=== PATIENT | male | born 1940 | race Caucasian/White ===

== ENCOUNTER → 2016-12-28 | Outpatient (CLI) | payer OTHER | LOC: CIMAGING 06:55 | PROVIDERS: ATTEND Internal Medicine Cardiovascular Disease | DX: I70.0 Atherosclerosis of aorta (principal) ==

== ENCOUNTER 2017-01-08 09:53 | Observation (INO) | payer OTHER ==
[2017-01-08] MEDS ORDERED: NS 1,000 ML IV ONE ×2 (10:08→14:07)
--- NOTE | 2017-01-08 10:09 | CPEKG ---
Heart Rate: 84 RR Interval: 714 P-R Interval: 192 QRSD Interval: 108 QT Interval: 380 QTC Interval: 450 P [place]: 67 QRS [place]: -44 T Wave [place]: 51 EKG Severity - ABNORMAL ECG - EKG Impression: SINUS RHYTHM EKG Impression: INCOMPLETE RBBB AND LAFB Electronically Signed By: Wilmer Medina 08-Jan-2017 10:16:59
--- NOTE | 2017-01-08 10:15 | EDPHY ---
H & P Stated Complaint: states 0730 this am c/o SOB then unable to recall events Time Seen by Provider: 01/08/17 09:59 HPI/ROS: CHIEF COMPLAINT: Confusion HISTORY OF PRESENT ILLNESS: The patient is a 76-year-old man with no significant past medical history other than prostatic hypertrophy who comes to the emergency department with his because of acute memory loss. She states that when he got up from bed he was hunched over and she asked what was wrong. He said that he was short of breath but did not appear to be breathing without any difficulty. He then was extremely confused about where he was, what day it was, who the president was etc. He is usually very sharp and alert. He went to bed feeling normally. The states that something similar happened last year and resolved spontaneously after about an hour the cause was never found. Patient does not have any history of stroke or cancer. No history of seizures or migraines. He denies being in any pain. He can answer most questions appropriately and can ambulate and move all of his extremities but has difficulty with questions about the date, his location, the president is cetera. He does recognize his and can recite his medical history. No recent fevers. No recent trauma. REVIEW OF SYSTEMS: Constitutional: denies: chills, fever, recent illness, recent injury EENTM: denies: blurred vision, double vision, nose congestion Respiratory: denies: cough, shortness of breath Cardiac: denies: chest pain, irregular heart rate, lightheadedness, palpitations Gastrointestinal/Abdominal: denies: abdominal pain, diarrhea, nausea, vomiting, blood streaked stools Genitourinary: denies: dysuria, frequency, hematuria, pain Musculoskeletal: denies: joint pain, muscle pain Skin: denies: lesions, rash, jaundice, bruising Neurological: See HPI, denies: headache, numbness, paresthesia, tingling, dizziness, weakness Hematologic/Lymphatic: denies: blood clots, easy bleeding, easy bruising Immunologic/allergic: denies: HIV/AIDS, transplant - Physical Exam General Appearance: WD/WN, mild distress Eyes, Ears, Nose, Throat Exam: PERRL/EOMI, normal ENT inspection, pharynx normal Neck: non-tender, full range of motion, supple, normal inspection. No: stiff neck, tender lateral Cardiovascular/Chest: normal peripheral pulses, regular rate, rhythm Respiratory: chest non-tender, lungs clear, normal breath sounds. No: crackles , rhonchi Gastrointestinal/Abdominal: normal bowel sounds, non tender, soft Back Exam: normal inspection Extremity: normal range of motion, non-tender, normal inspection Mental Status: Confused to place, date, day of the week, who the present it is. Aware of self and . Kidney a.m. objects without difficulty. NIH stroke score is 1 only for not knowing his exact age but he does know his birthday. CN's Exam: normal hearing, normal speech, PERRL, normal eye position, normal gag reflex, normal pupil position, normal speech. No: facial asymmetry, facial droop, facial paresthesias, gaze palsy, tongue deviation to R, tongue deviation to L Coordination/Gait: normal finger to nose, normal gait Motor/Sensory: normal. No: motor deficit, sensory deficit, pronator drift (R), pronator drift (L), weak motor strength RUE, weak motor strength LUE, weak motor strength RLE, weak motor strength LLE DTR: tricep (R): 2+, tricep (L): 2+, knee (R): 2+, knee (L): 2+ Skin Exam: warm/dry, normal color Lymphatic: no adenopathy Source: Patient, Family Exam Limitations: No limitations - Medical/Surgical History Hx Asthma: No Hx Chronic Respiratory Disease: No Hx Diabetes: No Hx Cardiac Disease: No Hx Renal Disease: No Hx Cirrhosis: No Hx Alcoholism: No Hx HIV/AIDS: No Other PMH: BPH - Family History Significant Family History: No pertinent family hx - Social History Smoking Status: Former smoker Alcohol Use: Sober Drug Use: None Constitutional: Initial Vital Signs Temperature (C) 36.3 C 01/08/17 10:06 Heart Rate 85 01/08/17 10:06 Respiratory Rate 16 01/08/17 10:06 Blood Pressure 130/68 H 01/08/17 10:06 O2 Sat (%) 100 01/08/17 10:06 O2 Delivery Mode Room Air Allergies/Adverse Reactions: Penicillins Allergy (Verified 01/08/17 10:10) UNK DETERGENT SOAP Allergy (Mild, Uncoded 01/08/17 10:10) RASH/IRRIATED SKIN Home Medications: Medication Instructions Recorded Avodart 08/13/09 Aspirin EC 81 mg (*) 01/08/17 Atorvastatin Calcium 01/08/17 Iron 01/08/17 Medical Decision Making - Diagnostics EKG Interpretation: An EKG obtained and was read and documented in trace view. Please see trace view for full reading and report. Sinus rhythm, right bundle branch block, no acute ischemic changes Imaging Results: Imaging Impressions Chest X-Ray 01/08/17 10:09 Impression: Negative. Head CT 01/08/17 10:09 Impression: 1. Mild atrophy. 2. No acute hemorrhage, hydrocephalus, or mass effect. 3. Cerebrovascular atherosclerosis. 4. No definite acute infarct. 5. Consider MRI of the brain without and with contrast enhancement, if there is continued clinical concern. Findings and recommendations discussed with Emergency Department physician, CHEVY RUBI at 11:34 hour, 01/08/2017. Final report concurs with initial preliminary interpretation. ED Course/Re-evaluation: 11:00 a.m. I spoke with Dr. Dave from Neurology. He states this does not sound like a stroke and agrees not calling a stroke alert. We will continue or workup. 12:15 p.m. I spoke with hospital service who accepted for Dr. Valdez. We will transfer an ambulance. Patient's symptoms remain the same. Is not sure why he is here. Does remember where he was but not when. Does remember where he went to college. Differential Diagnosis: Partial list of the Differential diagnosis considered include but were not limited to; CVA, global amnesia and although unlikely based on the history and physical exam, I also considered electrolyte abnormality, infection, ischemia. - Data Points Laboratory Results: Laboratory Results 01/08/17 10:20 01/08/17 10:20 01/08/17 01/08/17 01/08/17 10:20 10:20 10:20 WBC 4.92 10^3/uL 10^3/uL (3.80-9.50) RBC 4.59 10^6/uL 10^6/uL (4.40-6.38) Hgb 14.3 g/dL g/dL (13.7-17.5) Hct 40.8 % % (40.0-51.0) MCV 88.9 fL fL (81.5-99.8) MCH 31.2 pg pg (27.9-34.1) MCHC 35.0 g/dL g/dL (32.4-36.7) RDW 14.0 % % (11.5-15.2) Plt Count 228 10^3/uL 10^3/uL (150-400) MPV 10.1 fL fL (8.7-11.7) Neut % (Auto) 67.4 % % (39.3-74.2) Lymph % (Auto) 19.3 % % (15.0-45.0) [place] % (Auto) 8.9 % % (4.5-13.0) Eos % (Auto) 3.0 % % (0.6-7.6) Baso % (Auto) 1.0 % % (0.3-1.7) Nucleat RBC Rel Count 0.0 % % (0.0-0.2) Absolute Neuts (auto) 3.31 10^3/uL 10^3/uL (1.70-6.50) Absolute Lymphs (auto) 0.95 10^3/uL L 10^3/uL (1.00-3.00) Absolute Monos (auto) 0.44 10^3/uL 10^3/uL (0.30-0.80) Absolute Eos (auto) 0.15 10^3/uL 10^3/uL (0.03-0.40) Absolute Basos (auto) 0.05 10^3/uL 10^3/uL (0.02-0.10) Absolute Nucleated RBC 0.00 10^3/uL 10^3/uL (0-0.01) Immature Gran % 0.4 % % (0.0-1.1) Immature Gran # 0.02 10^3/uL 10^3/uL (0.00-0.10) PT 14.8 SEC SEC (12.0-15.0) INR 1.19 H (0.83-1.16) APTT 31.5 SEC SEC (23.0-38.0) Sodium 143 mEq/L mEq/L (134-144) Potassium 3.8 mEq/L mEq/L (3.5-5.2) Chloride 106 mEq/L mEq/L (97-110) Carbon Dioxide 24 mEq/l mEq/l (22-31) Anion Gap 13 mEq/L mEq/L (8-16) BUN 11 mg/dL mg/dL (7-23) Creatinine 0.8 mg/dL mg/dL (0.7-1.3) Estimated GFR > 60 Glucose 106 mg/dL H mg/dL (70-100) Calcium 9.1 mg/dL mg/dL (8.5-10.4) Troponin I < 0.012 ng/mL ng/mL (0.000-0.034) Medications Given: Discontinued Medications Sodium Chloride (Ns) 1,000 mls @ 500 mls/hr IV EDNOW ONE PRN Reason: Protocol Stop: 01/08/17 12:07 Last Admin: 01/08/17 10:22 Dose: 1,000 mls Departure - Departure Disposition: [facility] Inpatient Acute Clinical Impression: Amnesia memory loss Condition: Fair
[2017-01-08 10:26] LABS: % IMMATURE GRANULYOCYTES 0.4 % (0.0-1.1); ABSOLUTE IMMATURE GRANULOCYTES 0.02 10^3/uL (0.00-0.10); ADD DIFF? NO; ADD MORPH? NO; ADD SCAN? NO; ATYPICAL LYMPHOCYTE FLAG 10 (0-99); FRAGMENT RBC FLAG 0 (0-99); HEMATOCRIT 40.8 % (40.0-51.0); HEMOGLOBIN 14.3 g/dL (13.7-17.5); LEFT SHIFT FLG 0 (0-99); LIPEMIA HEMOLYSIS FLAG 90 (0-99); MEAN CELL HEMOGLOBIN 31.2 pg (27.9-34.1); MEAN CELL VOLUME 88.9 fL (81.5-99.8); MEAN PLATELET VOLUME 10.1 fL (8.7-11.7); PLATELET CLUMPS FLAG 0 (0-99); PLATELET COUNT 228 10^3/uL (150-400); RED BLOOD CELL COUNT 4.59 10^6/uL (4.40-6.38)
[2017-01-08 10:41] LABS: INR 1.19 (0.83-1.16); PROTIME(PATIENT) 14.8 SEC (12.0-15.0)
[2017-01-08 10:42] LABS: APTT 31.5 SEC (23.0-38.0)
[2017-01-08 11:20] LABS: ANION GAP 13 mEq/L (8-16); CALCIUM 9.1 mg/dL (8.5-10.4); CARBON DIOXIDE 24 mEq/l (22-31); CHLORIDE 106 mEq/L (97-110); CREATININE 0.8 mg/dL (0.7-1.3); GLOMERULAR FILTRATION RATE > 60; GLUCOSE 106 mg/dL (70-100); POTASSIUM 3.8 mEq/L (3.5-5.2); SODIUM 143 mEq/L (134-144)
[2017-01-08 11:29] LABS: TROPONIN I < 0.012 ng/mL (0.000-0.034)
[2017-01-08] MEDS ORDERED: ACETAMINOPHEN 325 MG TAB PO PRN (14:07)
--- NOTE | 2017-01-08 15:02 | GHP ---
[f rep st] HISTORY AND PHYSICAL DATE OF ADMISSION: 01/08/2017 CHIEF COMPLAINT: Confused. HISTORY OF PRESENT ILLNESS: 76-year-old man, relatively healthy, presents with an episode of confusion. His found him this morning sitting on side of the bed, stating that he was short of breath. He was unable to really remember much including things like the president. He does know his name. He does know his address and is close on his phone number. He does not remember really how he got to the hospital or what they did today. He does seem to somewhat remember driving. I am unclear when his last memories were. He does not remember what he did for his birthday a year ago, either. Per his , he is normally quite sharp. PAST MEDICAL/SURGICAL HISTORY: 1. Hyperlipidemia. 2. BPH. MEDICATIONS: Please see medication reconciliation. ALLERGIES: penicillins, detergent soap. SOCIAL HISTORY: Lives with his . He is a recovering alcoholic. FAMILY HISTORY: Reviewed and noncontributory. REVIEW OF SYSTEMS: 10-point review of systems is conducted and is negative except per HPI. PHYSICAL EXAM: VITAL SIGNS: Blood pressure initially 130/68, heart rate 85, respiration rate 16, saturating 100% on room air. Temperature 36.3. GENERAL: The patient is a pleasant man who appears comfortable, in no acute distress. HEENT: Normocephalic, atraumatic. CARDIOVASCULAR: Regular rate and rhythm. No murmurs, rubs, or gallops. PULMONARY: Lungs clear to auscultation bilaterally. ABDOMEN: Soft, nontender, nondistended. SKIN: No rash. : Shows no Goldberg. NEUROLOGIC: Alert and oriented by about 1, to person. Cranial nerves 2-12 are intact. Pronator drift is absent. He is able to repeat no ifs, ands, or buts. He does not do very well on serial sevens. Motor is intact in the upper and lower extremities bilaterally. Sensation to light touch is also intact in the upper and lower extremities. LABS: Basic metabolic panel is normal. Troponins negative. INR is 1.1. CBC is normal. DATA: 1. Head CT shows mild atrophy, nothing acute. He does have atherosclerosis. 2. Chest x-ray, which I personally viewed and interpreted, shows normal size heart. Normal lung xiao. Negative. 3. EKG, which I personally viewed and interpreted, shows incomplete right bundle branch block, sinus rhythm. I do not see anything acute. IMPRESSION/PLAN: This is a 76-year-old man, presents with confusion. 1. Confusion/amnesia: Not sure if this exactly represents transient global amnesia. He is attentive. Chief considerations include underlying dementia with some mild delirium versus transient global amnesia versus other dissociative type amnesia. I placed a call to Dr. Dave with Neurology, will review with him to see if any additional imaging is indicated, but I will hold off on ordering at this point. He does have risk factors for atherosclerosis and as he does have atherosclerosis seen on his CT, would consider cerebrovascular accident workup. Would also consider epilepsy with postictal phase. This is a high-risk diagnosis. 2. BPH: Avodart. 3. Hyperlipidemia: Lipitor. 4. We will make him empirically full code. /[id number]/MODL MTDD
[2017-01-08] MEDS: THIAMINE HCL 100 MG in NS 100 ML IV SCH (15:52)
[2017-01-08] MEDS: LISINOPRIL 10 MG TAB PO SCH (18:33)
[2017-01-08 20:25] LABS: COLOR PALE YELLOW; LEUKOCYTE ESTERASE,URINE NEGATIVE (NEGATIVE); NITRITE,URINE NEGATIVE (NEGATIVE)
[2017-01-08] MEDS ORDERED: FLU VACC QS 2017-18 (3YR+)/PF 0.5 ML SYR (FLUARIX QUAD) IM ONE (20:57)
[2017-01-08] MEDS ORDERED: PNEUMOC 13-VAL CONJ-DIP CRM/PF 0.5 ML SYR IM ONE (20:58)
--- NOTE | 2017-01-08 22:19 | GCON ---
[f rep st] CONSULTATION REFERRING PHYSICIAN: Mack Valdez MD HISTORY: The patient is a 76-year-old gentleman who I am asked to see in neurologic consultation reg angela some changes in his mental state today. History is obtained from reviewing my medical records that date back to 2011 through the 2014 office visits, as well as direct history from the patient, kulwant michelle of the medical records, and discussion with the patient's son and daughter and his . The p eliot really does not know why he is here. His says this morning he was awake and had trouble affectively explaining what was happening and he got confused. He initially said he was short of deandra ath and that resolved. He could not remember the president. He could not remember any detailed even ts over the last several hours and when they told him information he kept repeating himself. He came to the emergency room where he was evaluated and had a head CT showing nonspecific changes. He has subsequently started to have a little bit better memory but still says he does not remember why he is here. 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 He went through a series of treatments that included Keppra which initially was somewhat helpful for decreasing the episodes but lead to ad verse side affects, and we switched to Dilantin in 2011, but that cause dizziness and then switched h im to lamotrigine which he took for about the next year and a half but eventually did not like the si de effects and decided to stop that, and does not recall having any more of these episodes of hearing music. He still has some other peculiar episodes that are hard to put into words but surges in his abdomen or other abnormal feelings for which he said he would rather live with them than take medicat ion. FAMILY HISTORY: Unremarkable. He lives with his . He has a history of alcoholism and is recove ring from that. Smoking in the past. PHYSICAL EXAMINATION: VITAL SIGNS: Blood pressure is 170/87, pulse of 67, respirations 18, temperat ure 36.7. GENERAL: He is well developed in no acute distress. NEUROLOGIC: He is alert and attenti ve, and he is oriented slowly to be able to tell me he is in the hospital in [place], [place], and dane suggs can tell me his address. He can tell me his 's name, his children's names. He does not really remember what happened this morning. He can state the name of the president now which he could not do earlier, and they confirm that he keeps repeating himself sometimes, although he was doing a littl e bit less currently. Otherwise nonfocal neurologic examination. IMPRESSION: The patient has a history of awakening with some shortness of breath of unclear cause an d then this state of relative amnesia. Overall, this fits best with transient global amnesia with di fferential considerations of seizure with postictal confusion and less likely posterior circulation t ransient ischemic attack. Delirium does not really fit very well given his generally calm state and level of alertness, and there is no obvious cause for this. This phenomenon is thought to be probabl y be related to a basilar migraine type phenomena and he has had other various symptoms as far back a s 7 years ago for which we never were sure of the cause and treated empirically for possible complex partial seizure phenomena versus migraine with brainstem aura. In any case, he is getting a little b it better which is usually the natural history, and he will probably have resolution by tomorrow, if not we should certainly consider further evaluation and we discussed all this in great detail today. The total unit time in reviewing his case was 50 minutes, with greater than 50% of the time counselin g and coordination of care. /[id number]/MODL
[2017-01-09] MEDS: THIAMINE HCL 100 MG in NS 100 ML IV SCH (07:37)
[2017-01-09] MEDS: LISINOPRIL 10 MG TAB PO SCH (07:41)
[2017-01-09] MEDS ORDERED: FERROUS SULFATE 325 MG TAB PO SCH (09:00)
[2017-01-09] MEDS ORDERED: ASPIRIN 81 MG CHEWABLE TAB PO SCH (09:00)
[2017-01-09 11:29] VITALS: BP 129/74; PULSE 66; RESP 20; TEMP 98.5; O2SAT 95
--- NOTE | 2017-01-09 14:12 | GDS ---
[f rep st] DISCHARGE SUMMARY ALL DIAGNOSES: 1. Transient global amnesia. 2. Hypertension. 3. History of hyperlipidemia. 4. Benign prostatic hypertrophy. HOSPITAL COURSE: This 76-year-old man presented with an episode of amnesia. [place] to be most consist ent with transient global amnesia. It has resolved on the day after admission. He was also somewhat hypertensive here. I have started him on low-dose lisinopril 10 mg p.o. daily. He should follow up with Dr. Brant Dave, his PCP, for ongoing management of his blood pressures. I have also recomm ended that he get a home cuff to follow this. FOLLOWUP: 1. Dr. Aubrey Dave, given the episode of transient global amnesia. 2. Dr. Brant Dave for management of his blood pressure, just started on lisinopril 10 mg. DISPOSITION: Discharged in stable condition to home with his . /[id number]/MODL
--- NOTE | 2017-01-10 16:55 | ASDISCHSUM ---
Discharge Information Plan Status: Medically Cleared to Leave: Discharge Date:01/09/2017 04:01 PM CM D/C Disposition: ADT D/C Disposition:Home, Routine, Self-Care Projected Discharge Date:01/09/2017 04:01 PM Transportation at D/C: Discharge Delay Reason: Follow-Up Date:01/09/2017 04:01 PM Discharge Slot: Final Diagnosis: Placement Information Patient Contact Information Contact Name:DEEPAK Relationship: Address:[address] Work Phone: City:[place] Alternate Phone: State/Zip Code:[place] [address] Email: Financial Information Financial Class: Primary Plan Desc:MEDICARE OUTPATIENT Primary Plan Number:[id number] Secondary Plan Desc:SHYOLAYINKA MARIA FERNANDA PPO Secondary Plan Number:[id number] Assessment Information Intervention Information Intervention Type:*TORREZ-Signed Date of Service:01/09/2017 09:42 AM Patient Type:Observation Staff Member:Samara Baker Hours: Discipline: Severity: Comment:
== END 2017-01-09 16:01 | disposition home or self-care (01) ==
LOC: CED 09:53 → CEDHOLD 12:19 → F3E 13:28
PROVIDERS: ADMIT Internal Medicine; ATTEND Student in an Organized Health Care Education/Training Program
DX: G45.4 Transient global amnesia (principal); I10 Essential (primary) hypertension; E78.5 Hyperlipidemia, unspecified; N40.0 Benign prostatic hyperplasia without lower urinary tract symptoms; I67.2 Cerebral atherosclerosis; Z87.891 Personal history of nicotine dependence; Z88.0 Allergy status to penicillin; Z23 Encounter for immunization
CPT/HCPCS: 70450; 71020; 90670; 90686; 93005; G0008; G0009; G0378; J3411; 80048-PO; 84484-PO; 85025-PO; 85610-PO; 85730-PO

== ENCOUNTER 2018-01-16 09:36 | Day surgery (SDC) | payer OTHER ==
[2018-01-16] MEDS ORDERED: LR 1,000 ML IV ONE (09:55)
[2018-01-16] MEDS ORDERED: LIDOCAINE 1% 2 ML INJ ID PRN (09:55)
[2018-01-16] MEDS ORDERED: PROPOFOL 200 MG/20 ML VIAL ONE (10:25)
[2018-01-16] MEDS ORDERED: LIDOCAINE 2% 2 ML INJ ONE ×2 (10:28)
[2018-01-16] MEDS ORDERED: DEXAMETHASONE 4 MG/ML VIAL ONE (10:28)
[2018-01-16] MEDS ORDERED: ONDANSETRON 4 MG/2 ML VIAL ONE (10:28)
--- NOTE | 2018-01-16 10:56 | PDHPUP ---
History & Physical Update H&P update statement: This history and physical update is based on an assessment of the patient which was completed after admission or registration (within 24 hours), but prior to the surgery/procedure. H&P update: H&P reviewed & patient examined, no change in patient's condition since H&P completed
[2018-01-16] MEDS ORDERED: fentaNYL 100 MCG/2 ML INJ ONE (11:07)
[2018-01-16] MEDS ORDERED: LIDOCAINE 2% JELLY 20 ML (UROJECT) ONE (11:27)
[2018-01-16] MEDS ORDERED: IOPAMIDOL (ISOVUE-M 300) 15 ML VIAL ONE (11:28)
--- NOTE | 2018-01-16 11:30 | PDANEPAE ---
ANE History of Present Illness kidney stone ANE Past Medical History - Cardiovascular History Hx Hypertension: Yes Hx Arrhythmias: No Hx Chest Pain: No Hx Coronary Artery / Peripheral Vascular Disease: No Hx CHF / Valvular Disease: No Hx Palpitations: No Cardiovascular History Comment: bilateral carotid artery disease - Pulmonary History Hx COPD: No Hx Asthma/Reactive Airway Disease: No Hx Recent Upper Respiratory Infection: No Hx Oxygen in Use at Home: No Hx Sleep Apnea: No Sleep Apnea Screening Result - Last Documented: Negative Pulmonary History Comment: BARON triggers - Neurologic History Hx Cerebrovascular Accident: No Hx Seizures: No Hx Dementia: Yes Neurologic History Comment: forgetfulness - Endocrine History Hx Diabetes: No - Renal History Hx Renal Disorders: Yes Renal History Comment: kidney stones - Liver History Hx Hepatic Disorders: No - Neurological & Psychiatric Hx Hx Neurological and Psychiatric Disorders: No - Cancer History Hx Cancer: No - Congenital Disorder History Hx Congenital Disorders: No - GI History Hx Gastrointestinal Disorders: No - Other Health History Other Health History: wears glasses for reading. allergic to detergents - causes rashes. upper and lower dentures - Chronic Pain History Chronic Pain: No - Surgical History Prior Surgeries: prostatectomy, 12/2009. appendectomy. shoulder, clavicle repair. sinus surgery ANE Review of Systems Review of Systems: - Exercise capacity Exercise capacity: >=4 METS METS (RN): 3 METS ANE Patient History - Allergies Allergies/Adverse Reactions: Penicillins Allergy (Verified 01/15/18 16:16) from as a child, unsure of rxn DETERGENT SOAP Allergy (Uncoded 01/15/18 16:17) RASH/IRRIATED SKIN - Home Medications Home Medications: Adult One Daily Multivit Tab 01/15/18 [Last Taken 01/15/18] Aspirin 81mg (*) 01/15/18 [Last Taken 01/15/18] Atorvastatin Calcium 01/15/18 [Last Taken 01/15/18] Donepezil HCl 01/15/18 [Last Taken 01/15/18] Levofloxacin 01/15/18 [Last Taken 01/15/18] Lisinopril 01/15/18 [Last Taken 01/15/18] Oxycodone HCl 01/15/18 [Last Taken 01/15/18] Phenazopyridine HCl 01/15/18 [Last Taken 01/15/18] Senna 01/15/18 [Last Taken 01/15/18] Tamsulosin HCl 01/15/18 [Last Taken 01/15/18] - NPO status NPO Since - Liquids (Date): 01/16/18 NPO Since - Liquids (Time): 00:05 NPO Since - Solids (Date): 01/15/18 NPO Since - Solids (Time): 17:00 - Smoking Hx Smoking Status: Former smoker - Family Anes Hx Family Hx Anesthesia Complications: none ANE Labs/Vital Signs - Labs Result Diagrams: 01/16/18 10:36 - Vital Signs Blood Pressure: 186/84 Heart Rate: 80 Respiratory Rate: 13 O2 Sat (%): 98 Height: 180.34 cm Weight: 68.039 kg ANE Physical Exam - Airway Neck exam: FROM Mallampati Score: Class 2 Mouth exam: dentures - Pulmonary Pulmonary: no respiratory distress - Cardiovascular Cardiovascular: regular rate and rhythym - ASA Status ASA Status: II ANE Anesthesia Plan Anesthesia Plan: GA w LMA
[2018-01-16] MEDS ORDERED: ePHEDrine SULFATE 25 MG/5 ML SYR ONE (11:56)
[2018-01-16] MEDS ORDERED: HYDROmorphONE/DILAUDID 2 MG/ML INJ IVP PRN (12:50)
[2018-01-16] MEDS ORDERED: LR 500 ML IV PRN (12:50)
[2018-01-16] MEDS ORDERED: NALOXONE HCL 0.4 MG/ML INJ IVP PRN (12:50)
[2018-01-16] MEDS ORDERED: LABETALOL HCL 5 MG/ML 20 ML MDV IVP PRN (12:50)
[2018-01-16] MEDS ORDERED: MEPERIDINE 25 MG/0.5 ML AMP IVP PRN (12:50)
[2018-01-16] MEDS ORDERED: fentaNYL 100 MCG/2 ML INJ IVP PRN (12:50)
[2018-01-16] MEDS ORDERED: OPIUM/BELLADONNA ALKALO SUPP PR ONE (13:00)
--- NOTE | 2018-01-16 13:28 | POSTOPPROG ---
Post Op Note Date of Operation: 01/16/18 Surgeon: Danyelle Giron Anesthesiologist: Gary Anesthesia: GET(General Endotracheal) Pre-op Diagnosis: left ureteral and renal stone Post-op Diagnosis: bladder stone, left renal stones Indication: nephrolithiasis Procedure: cysto,LURS,laser lithotripsy,stent,basket extraction stone, removal bladder Findings: ureteral stone found in bladder, large renal stone Inf/Abcess present in the surg proc area at time of surgery?: No Complications: none, pt tolerated procedure well Specimen(s): stone
--- NOTE | 2018-01-16 13:36 | PDGENHP ---
History and Physical - Chief Complaint right ureteral stone - History of Present Illness Pt presented to [facility] last weekend for pain, right obs ureteral stone. Stent placed. Here for treatment of her stone. No recent fevers or chills. No complaints. Multiple stone procedures in the past = around 20 stone procedures. History Information - Allergies/Home Medication List Allergies/Adverse Reactions: Penicillins Allergy (Verified 01/15/18 16:16) from as a child, unsure of rxn DETERGENT SOAP Allergy (Uncoded 01/15/18 16:17) RASH/IRRIATED SKIN Home Medications: Adult One Daily Multivit Tab 01/15/18 [Last Taken 01/15/18] Aspirin 81mg (*) 01/15/18 [Last Taken 01/15/18] Atorvastatin Calcium 01/15/18 [Last Taken 01/15/18] Donepezil HCl 01/15/18 [Last Taken 01/15/18] Levofloxacin 01/15/18 [Last Taken 01/15/18] Lisinopril 01/15/18 [Last Taken 01/15/18] Oxycodone HCl 01/15/18 [Last Taken 01/15/18] Phenazopyridine HCl 01/15/18 [Last Taken 01/15/18] Senna 01/15/18 [Last Taken 01/15/18] Tamsulosin HCl 01/15/18 [Last Taken 01/15/18] I have personally reviewed and updated: family history, medical history, social history, surgical history - Social History Smoking Status: Former smoker Review of Systems Review of Systems: ROS: 10pt was reviewed & negative except for what was stated in HPI & below Physical Exam Physical Exam: Temp Pulse Resp BP Pulse Ox 36.9 C 80 23 H 147/72 H 98 01/16/18 13:18 01/16/18 11:29 01/16/18 13:30 01/16/18 13:27 01/16/18 13:30 O2 (L/minute) 10 Constitutional: no apparent distress Ears, Nose, Mouth, Throat: moist mucous membranes Cardiovascular: regular rate and rhythym Gastrointestinal: soft, non-tender abdomen Skin: warm Neurologic: AAOx3 Lab Data & Imaging Review 01/16/18 10:36 Sodium 140 mEq/L (135-145) 01/16/18 10:36 Potassium 4.0 mEq/L (3.3-5.0) 01/16/18 10:36 Chloride 105 mEq/L (97-110) 01/16/18 10:36 Carbon Dioxide 27 mEq/l (22-31) 01/16/18 10:36 Anion Gap 8 mEq/L (6-14) 01/16/18 10:36 BUN 14 mg/dL (7-23) 01/16/18 10:36 Creatinine 0.7 mg/dL (0.7-1.3) 01/16/18 10:36 Estimated GFR > 60 01/16/18 10:36 Glucose 98 mg/dL (70-100) 01/16/18 10:36 Calcium 8.9 mg/dL (8.5-10.4) 01/16/18 10:36 Assessment & Plan Assessment: Right ureteral stone Plan: To the OR for R URS, laser, stent. Discussed risks of bleeding, infection, pain, injury to urethral, bladder, ureter, need for subsequent procedures, need for a stent. She understands and agrees to proceed. Consent received.
--- NOTE | 2018-01-16 14:08 | POSTANESTH ---
Post Anesthetic Evaluation Cardiovascular Status: Normal, Stable Respiratory Status: Normal, Stable Level of Consciousness/Mental Status: Can Participate in Eval Pain Control: Adequate, Prn Tx Ordered Nausea/Vomiting Control: Adequate, Prn Tx Ordered Complications Possibly Related to Anesthesia: None Noted
[2018-01-16] MEDS ORDERED: HYDROCODONE/APAP 5/325 TAB ONE (14:09)
[2018-01-16] MEDS: HYDROCODONE/APAP 5/325 TAB PO PRN ×2 (14:11→14:24)
[2018-01-16 14:35] VITALS: BP 149/79
--- NOTE | 2018-01-17 07:17 | GOP ---
DATE OF OPERATION: 01/16/2018 SURGEON: Danyelle Giron MD ANESTHESIOLOGIST: Dr. Vega PREOPERATIVE DIAGNOSIS: Left ureteral and renal stone. POSTOPERATIVE DIAGNOSIS: Bladder stone and left renal stones. PROCEDURE PERFORMED: Cystoscopy, left ureteroscopy, laser lithotripsy, basket extraction of stone, retrograde pyelogram, intraoperative fluoroscopy, and extraction of bladder stone. FINDINGS: The ureteral stone had passed into the bladder, which was extracted with a grasper. It was a 6 mm stone. Also, left renal stones were removed. SPECIMENS: Stone. INDICATIONS: Left ureteral stone and renal stone and pain. DESCRIPTION OF PROCEDURE: The patient was taken back to the cystoscopy suite, placed on the cystoscopy table in the supine position. General anesthesia induced without complication. Time-out performed. Core measures satisfied including placement of a Morgan Hugger, SCDs and administration of 2 g Ancef antibiotics. He was brought to the end of the table, placed in dorsal lithotomy position and all pressure points were padded. Genitalia draped and prepped in the standard surgical fashion with Betadine. Rigid cystoscope easily cannulated the urethral meatus and was advanced atraumatically into the bladder. 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 There was a stone in the bladder approximately 6 mm, which would have been the same size as the stone in his ureter. I did use a grasper to extract this. I then did a retrograde pyelogram on the left with a 5-Tanzanian open-ended catheter and there was no filling defect in the left ureter. I, however, did decide to do rigid ureteroscopy to verify no stone existed visually. I placed two 0.035 Glidewire in the left collecting system with fluoroscopic and cystoscopic guidance and then I advanced a semi-rigid ureteroscope nearly up to the renal pelvis and there was no stone, but in the ureter, I could see where the stone might have been lodged for a while. There was some mild edema at this area. Otherwise, the ureter was just slightly dilated, but looked otherwise healthy. At this point, then I had a safety wire and a working wire still up and I advanced a 12/14-Tanzanian ureteral access sheath over the working wire with fluoroscopic guidance into the left collecting system and then found the stones in the left kidney and did a laser and basket extract the fragments. I basket extracted the larger fragments and the remaining was just dust. At the end of the procedure, I felt he was clear of stones on the left. I did a retrograde pyelogram before removing my stent and sheaths and scope were removed together and examined the wall of the ureter and was without significant edema. The safety wire was still up and I placed a 6-Tanzanian multivariable stent with fluoroscopic and cystoscopic guidance. Fluoroscopy demonstrated the stent was in good position. He was awoken from anesthesia and transferred to PACU in good condition. He will be discharged today and return in 1 week for stent removal. COMPLICATIONS: None. The patient tolerated the procedure well. /[id number]/MODL MTDD
== END 2018-01-16 14:37 | disposition home or self-care (01) ==
LOC: FSGY 09:36
PROVIDERS: ATTEND Urology
DX: N20.0 Calculus of kidney (principal); N21.0 Calculus in bladder
CPT/HCPCS: 52353; 76001; C1769; C1894; 82365-90; C2625; J0696; J1100; J2405; J2704; J3010; Q9967